=== PATIENT | male | born 1975 | race Caucasian/White ===

== ENCOUNTER → 2023-12-16 13:17 | Outpatient (CLI) | payer OTHER, MEDICAID, SELFPAY ==
[2023-12-16 15:00] LABS: Urine N gonorrhoeae NOT DETECTED
[2023-12-16 15:06] LABS: Urine Chlamydia NOT DETECTED
== END ==
PROVIDERS: Visit Provider Student in an Organized Health Care Education/Training Program
DX: Z20.2 Contact with and (suspected) exposure to infections with a predominantly sexual mode of transmission (principal)
CPT/HCPCS: 87491; 87591

== ENCOUNTER 2024-10-04 18:18 | Emergency (ER) | payer OTHER, SELFPAY ==
[2024-10-04 18:22] VITALS: BP 161/90; PULSE 87; RESP 17; TEMP 36.6; O2SAT 99; BMI 26.5
--- NOTE | 2024-10-04 18:31 | EKG_ITS ---
[facility] [address] [place] [address] Test Date: 2024-10-04 Pat Name: Gregor Baugh Department: [facility] Room: Gender: Male [employer]ing [employer]: MICHELA : 1975 Requested By: Order Number: [id number] Reading MD: Rolando Rutledge MD Measurements Intervals Donovan Rate: 86 P: 48 RI: 116 QRS: 55 QRSD: 86 T: 30 QT: 324 QTc: 387 Interpretive Statements Normal sinus rhythm Minimal voltage criteria for LVH, may be normal variant ( Sokolow-[place] ) Nonspecific ST abnormality Electronically Signed On 10-05-2024 7:14:40 PDT by Rolando Rutledge MD
[2024-10-04 18:52] LABS: Add Manual Diff / Slide Review NO; Basophils Absolute Auto 100 /uL (0-100); Basophils Percent Auto 0.7 % (0-2); Eosinophils Absolute Auto 100 /uL (0-450); Eosinophils Percent Auto 0.7 % (2-4); Hematocrit 51.3 % (41-53); Hemoglobin 17.6 g/dL (13.5-17.5); Lymphocytes Absolute Auto 2400 /uL (1100-4500); Lymphocytes Percent Auto 17.5 % (25-40); Mean Corpuscular HGB Conc 34.3 % (30-36); Mean Corpuscular Volume 96.2 fL (80-100); Monocytes Absolute Auto 900 /uL (0-900); Monocytes Percent Auto 6.8 % (3-14); Neutrophils Absolute Auto 10100 /uL (1500-7000); Neutrophils Percent Auto 74.3 % (50-75); Platelet Count 291 X10^3/uL (150-400); Red Blood Cell Count 5.33 X10^6/uL (4.5-5.9); Red Cell Distribution Width 12.6 % (11.6-14.8); White Blood Cell Count 13.6 X10^3/uL (4.5-11.0)
[2024-10-04 19:02] LABS: Alanine Aminotransferase 42 IU/L (<50); Albumin 4.5 g/dL (3.5-5.0); Albumin Globulin Ratio 1.5 (1.0-2.8); Alkaline Phosphatase 84 U/L (38-126); Aspartate Aminotransferase 40 IU/L (17-59); BUN Creatinine Ratio 32.5 (6-22); Bilirubin Total 0.6 mg/dL (0.2-1.3); Blood Urea Nitrogen 25 mg/dL (9-20); Calcium 9.8 mg/dL (8.4-10.2); Carbon Dioxide 27 mmol/L (22-32); Chloride 101 mmol/L (98-107); Estimated Glomerular Filt Rate > 60 mL/min (>60); Glucose 111 mg/dL (70-99); HEMOLYSIS 29 (0-50); Potassium 4.7 mmol/L (3.4-5.1); Sodium 136 mmol/L (137-145); Total Protein 7.5 g/dL (6.3-8.2)
[2024-10-04 22:37] VITALS: PULSE 71; O2SAT 98
[2024-10-04 22:38] VITALS: BP 173/107; PULSE 69; RESP 16; O2SAT 98
[2024-10-04 22:50] VITALS: BP 154/89; PULSE 75; O2SAT 99
--- NOTE | 2024-10-04 22:52 | ED_ITS ---
HPI - Recheck/Abnormal Lab/Rx General Chief Complaint: Recheck/Abnormal Lab/Rx Stated Complaint: high potassium above 6- recheck potassium Time Seen by Provider: 10/04/24 22:40 Source: patient Mode of arrival: Ambulatory History of Present Illness HPI narrative: 49-year-old gentleman on testosterone therapy and hypertension was seen by PCP on Friday with lab work showing potassium 6.1 alerted today to come to the ER to be rechecked including lab work and EKG. He is asymptomatic otherwise no other concerns at this time. Denies headache, dizziness, chest pain, palpatation, shortness of breath, cough, kidney issues, or difficulty urinating. Other than what is stated 14 point review of system is negative. Related Data Home Medications Medication Instructions Recorded Confirmed testosterone cypionate 200 mg/mL 50 mg IM 2XW 10/04/24 10/04/24 intramuscular oil Previous Rx's Medication Instructions Recorded lisinopril 20 mg tablet 20 mg PO QDAY #90 tabs 04/04/16 nitrofurantoin 100 mg PO Q12H 5 days #10 caps 10/04/24 monohydrate/macrocrystals 100 mg capsule (Macrobid) Allergies Allergy/AdvReac Type Severity Reaction Status Date / Time No Known Drug Allergies Allergy Verified 10/04/24 18:21 Review of Systems Review of Systems ROS Unobtainable: All systems reviewed & are unremarkable except as noted in HPI and below Patient History Family History Father Age: 61 Essential hypertension Mother Age: 65 Family history of thyroid problem Social History Smoking Status: Current every day smoker Smoking Status: Current every day smoker tobacco type: cigarettes Alcohol type: beer Exam Narrative Exam Narrative: GENERAL: [84] year old patient appears stated age. Well-developed patient, in mild distress. HEAD: Atraumatic. Normocephalic. EYES: Pupils equal round and reactive. Extraocular motions intact. No scleral icterus. No injection or drainage. NECK: Trachea midline. Non tender CARDIOVASCULAR: Regular rate and rhythm without murmurs, gallops, or rubs. RESPIRATORY: Clear to auscultation. Breath sounds equal bilaterally. No wheezes, rales, or rhonchi. GASTROINTESTINAL: Abdomen soft, non-tender, nondistended. EXTREMITIES: No edema or joint tenderness. BACK: Nontender without deformity or crepitance. No flank tenderness. NEURO: AOx3. SKIN: No rash or erythema of visible areas Initial Vital Signs Initial Vital Signs: Vital Signs Temperature 98 F 10/04/24 18:22 Pulse Rate 87 10/04/24 18:22 Respiratory Rate 17 10/04/24 18:22 Blood Pressure 161/90 H 10/04/24 18:22 Pulse Oximetry 99 10/04/24 18:22 Oxygen Delivery Method Room Air 10/04/24 18:22 Course Orders Ordered: ED Orders 10/04/24 18:31 EKG-12 Lead Stat 10/04/24 18:45 CMP [Comprehensive Metabolic Panel] Stat Complete Blood Count AUTO DIFF Stat 10/04/24 22:50 Urine Microscopic Stat Vital Signs Vital signs: Vital Signs - 8 hr 10/04/24 18:22 10/04/24 22:37 10/04/24 22:38 Temperature 98 F Pulse Rate 87 71 Respiratory Rate 17 Blood Pressure 161/90 H 173/107 H Pulse Oximetry 99 98 Oxygen Delivery Method Room Air 10/04/24 22:38 10/04/24 22:50 10/04/24 22:50 Temperature Pulse Rate 69 75 Respiratory Rate 16 Blood Pressure 154/89 H Pulse Oximetry 98 99 Oxygen Delivery Method 10/04/24 23:00 10/04/24 23:00 Temperature Pulse Rate 80 Respiratory Rate 16 Blood Pressure 150/91 H Pulse Oximetry 100 Oxygen Delivery Method MDM - Recheck/Abnormal Lab/Rx Lab Data 10/04/24 18:45 10/04/24 18:45 Labs: Lab Results 10/04/24 Range/Units 18:45 WBC 13.6 H (4.5-11.0) X10^3/uL RBC 5.33 (4.5-5.9) X10^6/uL Hgb 17.6 H (13.5-17.5) g/dL Hct 51.3 (41-53) % MCV 96.2 (80-100) fL MCH 33.0 (26-34) PG MCHC 34.3 (30-36) % RDW 12.6 (11.6-14.8) % Plt Count 291 (150-400) X10^3/uL Neut % (Auto) 74.3 (50-75) % Lymph % (Auto) 17.5 L (25-40) % [place] % (Auto) 6.8 (3-14) % Eos % (Auto) 0.7 L (2-4) % Baso % (Auto) 0.7 (0-2) % Neut # (Auto) 83087 H (5002-3376) /uL Lymph # (Auto) 2400 (0841-0971) /uL [place] # (Auto) 900 (0-900) /uL Eos # (Auto) 100 (0-450) /uL Baso # (Auto) 100 (0-100) /uL Sodium 136 L (137-145) mmol/L Potassium 4.7 (3.4-5.1) mmol/L Chloride 101 (98-107) mmol/L Carbon Dioxide 27 (22-32) mmol/L BUN 25 H (9-20) mg/dL Creatinine 0.77 (0.66-1.25) mg/dL Estimated GFR > 60 (>60) mL/min BUN/Creatinine Ratio 32.5 H (6-22) Glucose 111 H (70-99) mg/dL Calcium 9.8 (8.4-10.2) mg/dL Total Bilirubin 0.6 (0.2-1.3) mg/dL AST 40 (17-59) IU/L ALT 42 (<50) IU/L Alkaline Phosphatase 84 (38-126) U/L Total Protein 7.5 (6.3-8.2) g/dL Albumin 4.5 (3.5-5.0) g/dL Globulin 3.0 (1.7-4.1) g/dL Albumin/Globulin Ratio 1.5 (1.0-2.8) Urine Dip Bedside Urine Glucose Negative Bedside Urine Bilirubin - Negative Bedside Urine Ketone - Negative Urine Specific [place] 1.030 Bedside Urine Occult Blood - Negative Bedside Urine pH 6 Bedside Urine Protein - Negative Bedside Urine Urobilinogen - Negative Bedside Urine Nitrite - Negative Bedside Urine Leukocytes +++ 500 Esterase ECG Data Interpretation: NSR 86 PR116 QRS [address]-t wave change No Old ekg to compare against MDM Narrative Medical decision making narrative: All lab work, vital signs, nurse triage note, medication list, previous ER visits and all imaging studies all reviewed. Potassium here was 4.7 BUN was 25 creatinine 0.77. EKG did not show peaked T-waves but normal sinus rhythm with left ventricular hypertrophy and nonspecific STT wave changes with no previous ones to compare against. Differential diagnosis includes lab error, hemolyzed sample, dehydration. Return with new or worsening symptoms. Discharge Plan Departure Patient Disposition: Home Clinical Impression: H/O hyperkalemia, Acute UTI Instructions: DI for Hyperkalemia Activity Restrictions/Additional Instructions: Return with new or worsening symptoms. Follow up with PCP at your next scheduled appointment. Prescriptions: New nitrofurantoin monohyd/m-cryst [Macrobid] 100 mg capsule 100 mg PO Q12H 5 Days Qty: 10 0RF Rx Instructions: must administer with a meal/food No Action lisinopril 20 MG tablet 20 mg PO QDAY Qty: 90 1RF testosterone cypionate 200 mg/mL oil 50 mg IM 2XW Referrals: Miscellaneous,Doctor, MD [Primary Care Provider] - Stand Alone Forms: Patient Portal/API/Survey
[2024-10-04 23:00] VITALS: BP 150/91; PULSE 80; RESP 16; O2SAT 100
[2024-10-04 23:44] LABS: Bacteria Urine Moderate (10-30); Granular Casts Urine 1-5/LPF; RBC Urine None Seen (0-5/HPF); Squamous Epithelial Cell Urine 1-5 /HPF (0-5/HPF); Urine Volume 10mL (spun); WBC Urine 1-5/HPF (0-5/HPF)
[2024-10-04 23:45] LABS: Culture Indicated Urine Specimen Cultured; Mucus Urine 1+ (Negative)
[2024-10-04] MEDS: NITROFURANTOIN ER 100 MG CAPSULE PO (23:51)
== END 2024-10-04 23:55 | disposition home or self-care (01) ==
PROVIDERS: Emergency Provider Family Medicine
DX: N39.0 Urinary tract infection, site not specified; Z86.39 Personal history of other endocrine, nutritional and metabolic disease
CPT/HCPCS: 80053; 81003; 81015; 85025; 87086; 93005; 93010; 99283; 99284

== ENCOUNTER → 2024-11-18 09:21 | Outpatient (CLI) | payer OTHER, SELFPAY | PROVIDERS: Visit Provider Registered Nurse | DX: R30.0 Dysuria (principal) | CPT/HCPCS: 87086 ==

== ENCOUNTER → 2025-02-28 13:40 | Outpatient (CLI) | payer OTHER, SELFPAY | PROVIDERS: Referring Provider Internal Medicine Cardiovascular Disease; Visit Provider Internal Medicine Cardiovascular Disease | DX: I10 Essential (primary) hypertension (principal) | CPT/HCPCS: 36415; 82088; 82533; 83835; 84244 ==

== ENCOUNTER → 2025-05-10 13:57 | Outpatient (CLI) | payer OTHER, SELFPAY ==
--- NOTE | 2025-05-10 13:58 | DI.ECHO.S_ITS ---
[facility] : : [address] : : [place] : : [id number] : : Phone: [phone] Echocardiogram Report + + :Name: ESMER HERNÁNDEZ Study Date: 05/10/2025 Height: 63 in : :[facility] ReadingLocation: Weight: 130 lb : : Gender: Male BSA: 1.6 m2 : :: 1975 Age: 49 yrs BP: 138/90 mmHg: :Reason For Study: Hypertension : :Ordering Physician: MIKAELA, : :CRISTELA Call Performed By: Cezar García : :Referring: CRISTELA AL : + + Interpretation Summary The ejection fraction is estimated to be 60-65%. Normal diastolic function. The right ventricle is normal in size and function. No valvular abnormalities. Pulmonary artery pressures cannot be estimated because of the lack of a measurable TR jet velocity but the IVC suggests a CVP of around 3 mmHg. Procedure: A two-dimensional transthoracic echocardiogram with color flow and Doppler was performed. The study quality was technically adequate. There is no prior echocardiogram noted for this patient. The patient was in normal sinus rhythm during the exam. Left Ventricle: The left ventricle is normal in size and wall thickness. Left ventricular systolic function is normal. The ejection fraction is estimated to be 60-65%. There are no focal wall motion abnormalities. Normal diastolic function. Right Ventricle: The right ventricle is normal in size and function. Atria: The left atrial size is normal. Right atrial size is normal. There is no Doppler evidence for an interatrial shunt. Mitral Valve: The mitral valve leaflets appear to open well. There is no evidence of mitral valve prolapse. There is no mitral valve stenosis. There is trace mitral regurgitation. Aortic Valve: The aortic valve is trileaflet. The aortic valve opens well. There is no aortic valve stenosis. No aortic regurgitation is present. Tricuspid Valve: The tricuspid valve leaflets are thin and pliable. There is a trace or physiologic amount of tricuspid regurgitation. Pulmonary artery pressures cannot be estimated because of the lack of a measurable TR jet velocity but the IVC suggests a CVP of around 3 mmHg. Pulmonic Valve: The pulmonic valve is not well seen, but is grossly normal. There is a trace or physiologic amount of pulmonic regurgitation. Great Vessels: The aortic root is normal size. The ascending aorta is normal in size. The aortic arch could not be visualized. The pulmonary artery is normal size. The IVC is of normal diameter and collapses greater than 50% with a sniff. This suggests a low right atrial pressure of 3 mm Hg. Pericardium/ Pleura There is no pericardial effusion. MMode/2D Measurements & Calculations LVIDd: 4.1 cm LVOT diam: 2.0 cm LVIDs: 2.7 cm Ao root diam: 3.2 cm FS: 33.5 % asc Aorta Diam: 3.0 cm IVSd: 0.93 cm LVPWd: 0.93 cm LV bustillos. diameter/BSA (cm/m^2): 2.5 LV sys. diameter/BSA (cm/m^2): 1.7 LA A2 area: 15.0 cm2 RA long axis: 5.1 cm LA A4 area: 17.6 cm2 RA area: 14.2 cm2 LA length (vol): 5.6 cm RA vol: 33.5 ml LA vol: 40.3 ml RA : 20.8 ml/m2 LA vol index: 25.1 ml/m2 IVC diam: 2.1 cm RVD1 (basal): 2.9 cm RVD2 (mid): 2.2 cm TAPSE: 2.3 cm Doppler Measurements & Calculations Ao V2 max: 136.0 cm/sec LVOT Max Billy: 104.6 cm/sec Ao V2 mean: 86.9 cm/sec LV V1 max P.4 mmHg Ao max P.4 mmHg LV V1 VTI: 21.4 cm Ao mean P.6 mmHg MAX(I,D): 2.5 cm2 Ao V2 VTI: 25.3 cm MAX(V,D): 2.3 cm2 sev ratio: 0.85 MAX indexed to BSA (cm^2/m^2): 1.6 MV E max billy: 83.2 cm/sec PA V2 max: 88.0 cm/sec MV A max billy: 59.7 cm/sec PA V2 mean: 62.3 cm/sec MV E/A: 1.4 PA mean P.7 mmHg Med Peak E' Billy: 9.1 cm/sec PA pr(Accel): 22.5 mmHg E/E' med: 9.2 Lat Peak E' Billy: 12.2 cm/sec E/E' lat: 6.8 E/e' average: 8.0 MV dec time: 0.18 sec SV(OT): 64.2 ml Reading Physician:07:40 PM
--- NOTE | 2025-05-10 13:58 | DI.US.S_ITS ---
PROCEDURE: US RENAL DOPPLER INDICATIONS: CHRONIC UNCONTROLLED HYPERTENSION TECHNIQUE: Real time scanning was performed of both kidneys, followed by Color and pulsed Doppler interrogation of the renal vessels. COMPARISON: None. FINDINGS: Aortic peak systolic velocity: 93 cm/s. Right side: Cervantes-scale imaging: Kidney is 10.5 cm long. No hydronephrosis. No nephrolithiasis. Renal cortex is normal in echogenicity. No suspicious solid renal masses. Proximal renal artery peak systolic velocity: 152 cm/s. Mid renal artery peak systolic velocity: 177 cm/s. Distal renal artery peak systolic velocity: 179 cm/s. Renal vein: Patent, without thrombus. Peak renal/aortic ratio (RAR): 1.9 Left side: Cervantes-scale imaging: Kidney is 11.4 cm long. No hydronephrosis. No nephrolithiasis. Renal cortex is normal in echogenicity. No suspicious solid renal masses. Proximal renal artery peak systolic velocity: 230 cm/s. Mid-renal artery peak systolic velocity: 102 cm/s. Distal renal artery peak systolic velocity: 74 cm/s. Renal vein: Patent, without thrombus. Peak renal/aortic ratio (RAR): 2.5 IMPRESSION: 1. Greater than 60% stenosis involving the proximal left renal artery. If indicated, CT or MR angiography could be performed for confirmation. 2. No hemodynamically significant right renal arterial stenosis. Dictated by: Royal SIERRA Interpreted: Ramón Reinoso MD on 05/11/2025 at 11:13 Transcribed by: SHAY on 05/11/2025 at 13:24 Approved by: Ramón Reinoso M.D. on 05/12/2025 at 15:32
== END ==
LOC: US 13:57
PROVIDERS: Referring Provider Internal Medicine Cardiovascular Disease; Visit Provider Internal Medicine Cardiovascular Disease
DX: I70.1 Atherosclerosis of renal artery (principal); I10 Essential (primary) hypertension
CPT/HCPCS: 93306; 93975